=== PATIENT | male | born 1945 | race Two or more races ===

== ENCOUNTER → 2020-02-08 06:59 | Outpatient (CLI) | payer OTHER | END | disposition home or self-care (01) | LOC: LAB 06:59 | PROVIDERS: ATTEND Psychiatry & Neurology Neurology | DX: G20 Parkinson's disease (principal) ==

== ENCOUNTER 2020-02-08 07:51 | Outpatient (CLI) | payer OTHER | END 2020-02-08 08:03 | disposition home or self-care (01) | LOC: MRI 07:51 | PROVIDERS: ATTEND Psychiatry & Neurology Neurology | DX: G20 Parkinson's disease (principal) | CPT/HCPCS: 70551 ==

== ENCOUNTER 2020-03-23 10:01 | Outpatient (CLI) | payer OTHER | END 2020-03-23 15:00 | disposition home or self-care (01) | LOC: LAB 10:01 | PROVIDERS: ATTEND Physical Medicine & Rehabilitation | DX: Z20.828 Contact with and (suspected) exposure to other viral communicable diseases (principal) ==

== ENCOUNTER 2020-11-01 07:05 | Outpatient (CLI) | payer OTHER | END 2020-11-01 07:15 | disposition home or self-care (01) | LOC: LAB 07:05 | PROVIDERS: ATTEND Internal Medicine | DX: G20 Parkinson's disease (principal); I10 Essential (primary) hypertension; M54.5 Low back pain; Z01.810 Encounter for preprocedural cardiovascular examination; E03.8 Other specified hypothyroidism; E78.89 Other lipoprotein metabolism disorders; G62.89 Other specified polyneuropathies; E55.9 Vitamin D deficiency, unspecified; Z12.11 Encounter for screening for malignant neoplasm of colon ==

== ENCOUNTER 2021-02-24 07:02 | Outpatient (CLI) | payer OTHER | END 2021-02-24 15:00 | disposition home or self-care (01) | LOC: LAB 07:02 | PROVIDERS: ATTEND Internal Medicine | DX: E03.8 Other specified hypothyroidism (principal); G20 Parkinson's disease; I10 Essential (primary) hypertension; M54.5 Low back pain; Z01.810 Encounter for preprocedural cardiovascular examination; E78.89 Other lipoprotein metabolism disorders; G62.89 Other specified polyneuropathies; Z12.11 Encounter for screening for malignant neoplasm of colon ==

== ENCOUNTER 2021-10-13 07:18 | Outpatient (CLI) | payer OTHER | END 2021-10-13 07:42 | disposition home or self-care (01) | LOC: LAB 07:18 → CIR.AMB 07:18 → LAB 07:42 | PROVIDERS: ATTEND Internal Medicine | DX: E03.9 Hypothyroidism, unspecified (principal); E55.9 Vitamin D deficiency, unspecified; I10 Essential (primary) hypertension; E78.2 Mixed hyperlipidemia; D64.9 Anemia, unspecified; C18.9 Malignant neoplasm of colon, unspecified; D57.00 Hb-SS disease with crisis, unspecified; G20 Parkinson's disease; M54.59 Other low back pain; Z01.810 Encounter for preprocedural cardiovascular examination; E78.9 Disorder of lipoprotein metabolism, unspecified; G62.9 Polyneuropathy, unspecified ==

== ENCOUNTER 2021-11-08 10:29 | Outpatient (CLI) | payer OTHER | END 2021-11-08 10:42 | disposition home or self-care (01) | LOC: MRI 10:29 | PROVIDERS: ATTEND Physical Medicine & Rehabilitation | DX: M54.59 Other low back pain (principal) | CPT/HCPCS: 72148 ==

== ENCOUNTER 2022-02-21 06:13 | Outpatient (CLI) | payer OTHER | END 2022-02-21 06:14 | disposition home or self-care (01) | LOC: LAB 06:13 | DX: K59.09 Other constipation (principal); Z86.010 Personal history of colon polyps ==

== ENCOUNTER → 2022-03-13 06:18 | Outpatient (CLI) | payer OTHER | END | disposition home or self-care (01) | LOC: LAB 06:18 | PROVIDERS: ATTEND Internal Medicine Hematology & Oncology | DX: D50.0 Iron deficiency anemia secondary to blood loss (chronic) (principal); D69.49 Other primary thrombocytopenia; D70.9 Neutropenia, unspecified ==

== ENCOUNTER 2022-05-16 06:52 | Outpatient (CLI) | payer OTHER | END 2022-05-16 07:15 | disposition home or self-care (01) | LOC: MRI 06:52 | PROVIDERS: ATTEND Psychiatry & Neurology Neurology | DX: G20 Parkinson's disease (principal); R41.3 Other amnesia | CPT/HCPCS: 70551 ==

== ENCOUNTER 2022-07-19 09:39 | Outpatient (CLI) | payer OTHER | END 2022-07-19 09:40 | disposition home or self-care (01) | LOC: LAB 09:39 | PROVIDERS: ATTEND Internal Medicine Hematology & Oncology | DX: G20 Parkinson's disease (principal); K11.7 Disturbances of salivary secretion; D72.819 Decreased white blood cell count, unspecified ==

== ENCOUNTER 2022-07-20 07:44 | Outpatient (CLI) | payer OTHER | END 2022-07-20 07:51 | disposition home or self-care (01) | LOC: TOM 07:44 | PROVIDERS: ATTEND Internal Medicine Hematology & Oncology | DX: K11.7 Disturbances of salivary secretion (principal); M54.2 Cervicalgia ==

== ENCOUNTER 2024-06-17 11:22 | Outpatient (CLI) | payer OTHER | END 2024-06-17 11:25 | disposition home or self-care (01) | LOC: TOM 11:22 | PROVIDERS: ATTEND Psychiatry & Neurology Neurology | DX: S06.5X0A Traumatic subdural hemorrhage without loss of consciousness, initial encounter (principal) ==